=== PATIENT | female | born 1975 | race Caucasian/White ===

== ENCOUNTER 2018-05-03 16:20 | Emergency (ER) | payer MEDICAID, SELFPAY ==
[2018-05-03 17:04] VITALS: BP 126/76; PULSE 118; RESP 20; TEMP 37.2; O2SAT 97
--- NOTE | 2018-05-03 17:52 | W.ED.GENAD ---
Discharge Plan Disposition Patient Disposition: HOME Condition: Fair Discharge Details Chief Complaint: Sorethroat Clinical Impression: Abscess, peritonsillar Primary Care Provider: NONE,NONE ED Provider: Yamini Howard Home Meds and New Rx's Prescriptions: New amoxicillin-pot clavulanate [Augmentin] 875-125 mg tablet 1 tab PO BID Qty: 18 RF: 0 Discharge Instructions Instructions: Abscess (ED) Additional Instructions: Encourage hydration. Tylenol and/or ibuprofen as needed for discomfort. Take Augmentin as prescribed. Even if symptoms improve please take the entire course. Please contact ENT tomorrow to schedule appointment within the next 1-2 days. I have asked our patient care secretary to help facilitate follow-up as well. If you develop difficulty breathing, shortness of breath, inability to swallow, inability to hydrated or other new/worsening symptoms please seek care urgently once again Referrals: Kuldip Bai MD [ [facility] STAFF PHYSICIAN] - 05/05/18 12:00 am ([phone] ) Discharge Data Discharge Date/Time-TO BE ENTERED AT DEPARTURE: 05/03/18 22:09 Medical Decision Making <MADDIE Miller - Last Filed: 05/15/18 20:40> MDM Narrative Medical decision making narrative: Patient presents today with chief complaint of left-sided throat pain. On exam, she does have a large amount of swelling and exudates and erythema to the left side of her throat. There is tonsillar enlargement as well as uvula deviation. Findings are concerning for recurrence of the peritonsillar abscess. Palpable anterior cervical lymphadenopathy. Left ear is without significant abnormality. She appears nontoxic, afebrile. She is incredibly anxious and tearing on exam. Will obtain CT, Decadron, Unasyn and anxiolytic. Patient has not been able to tolerate any p.o. hydration and she cannot swallow. We will give IV hydration. Patient reports she feels much improved after anxiolytic. CT reviewed by radiologist. 2.3 x 1.3cm peripheral enhancing collection along the left peritonisilar abscess. Second abscess is 1.2 x 1.3cm medial to the uvula. Third collection of fluid is noted along the soft palate, 1.5x 1.1cm. These are concerning for peritonisillar abscess. Also noted to have enlarged nodes. Labs significant for WBC of 14.8 with left shift. Discussed findings wth the patient. Discussed that she will need drainage of these abscess as well as prompt f/u with ENT. Discussed case with Dr. Mitchell who will preform drainage. Patient, Dr. Mitchell and I discussed risks/benefits as well as expected course. Patient has had this completed multiple times. She signed consent. Patient given another dose of anxiolytic prior to proceedure. Please see Dr. Mitchell's note for information on procedure. Pus was able to be extracted from abscess via needle aspiration. Patient will f/u with ENT tomorrow, I have asked our patient care secretary to help with this appointment. Patient placed on antibiotics. She was given strict return precautions. In particular, we discussed the need for definitive care. She has been advised in the past to have her tonsils out secondary to her repeat peritonsillar abscesses. However, she has not done this secondary to anxiety. Advised that she can discuss her anxiety with the ENT provider and make a plan on how to approach her anxiety. She was given strict return precautions. All of her questions and concerns were adddressed, she is in agreement with tis plan. <Flavio Mitchell MD - Last Filed: 05/08/18 16:41> [facility] Narrative Medical decision making narrative: I was asked to participate in care of this patient by MADDIE Howard specifically to assist in incision and drainage. Please see MADDIE Howard documentation re: ED presentation and initial course. Briefly, Ms. Grajeda is a 42yo f with sore throat, left peritonsillar abscess on CT. Hx of peritonsillar abscesses in the past. On exam, posterior oropharynx is with erythema and left peritonsillar swelling, uvula deviated slight to right of midline, small exudate. Able to open her mouth without significant trismus. Not septic appearing. Patient does have significant anxiety. Patient was provided in the lytic and topical anesthetic Hurricaine spray was applied to left peritonsillar area. I performed incision and drainage of abscess with MADDIE Howrad. Plan to start patient on antibiotic and have her follow-up with ENT. Patient was intstructed to return to the ER immediately for any new concerning or worsening symptoms. HPI - General Adult <MADDIE Miller - Last Filed: 05/15/18 20:40> General Mode of arrival: ambulatory. Date/Time Provider Initiated Documentation: 05/03/18 17:47. Limitations to Documentation: no limitations. Information obtained by: patient and family. HPI Narrative: Patient is a 40-year-old female, accompanied by her , with chief complaint of left-sided throat pain. She reports that the throat pain began yesterday. Reports that she has had multiple peritonsillar abscesses in the past, this would be her sixth. Persistent is the same as it has previously. She states that she is having difficulty swallowing, has not been able to take in enough hydrations for the day. She denies any fevers or chills. No nausea or vomiting. Is also endorsing pain that radiates up to the left ear and down the lateral aspect of the left neck. Patient reports she has been seen previously by ENT as well as her dentist. She reports that she has had multiple recommendations, including having a tonsillectomy but has refused to discuss for secondary to anxiety. Patient is currently incredibly anxious and is requesting anxiolytic Related Data Home Medications Medication Instructions Recorded Confirmed amoxicillin-pot clavulanate 1 tab PO BID #18 tab 05/03/18 [Augmentin] Previous Rx's Medication Instructions Recorded amoxicillin-pot clavulanate 1 tab PO BID #18 tab 05/03/18 [Augmentin] Allergies Allergy/AdvReac Type Severity Reaction Status Date / Time No Known Allergies Allergy Unverified 05/03/18 17:08 General Stated Complaint: Sorethroat BROOKE: 3 Review of Systems <MADDIE Miller - Last Filed: 05/15/18 20:40> Constitutional Reports as per HPI, Denies chills, Reports fatigue, Denies fever(s) and Denies headache(s) Eyes Patient Denies blurry vision and Denies change in vision ENT Reports as per HPI and Denies headache(s) Cardiovascular Denies chest pain and Denies dyspnea Respiratory Denies cough, Denies dyspnea, Denies stridor and Denies wheezing Gastrointestinal Reports as per HPI, Denies nausea and Denies vomiting Integumentary/Breasts Denies rash Neurologic Denies headache(s) Endocrine Reports fatigue Allergic/Immunologic Denies wheezing Exam <MADDIE Miller - Last Filed: 05/15/18 20:40> Const General: healthy appearing, well developed, acute distress (Patient appears very anxious and uncomfortable. She is spitting frequently, having difficulty handling secretions), not ill appearing and No well hydrated Nutritional Appearance: thin Orientation: alert and awake [facility] Head: normal to inspection, normocephalic and atraumatic Ears: hearing grossly normal bilaterally, external ears normal and TM's normal bilaterally General nose exam: external nose normal and nares normal Face and sinus: sinuses tender (tenderness over the left maxillary sinus) Mouth: tongue normal, oropharynx abnormals (swelling of left tonsil with uvula deviation away from this. White exudate noted. Trismus noted. ), mucous membranes dry and muffled voice Teeth and gingiva: dentition normal Throat: tonisls abnormal, uvula not midline, abnormal tonsil, peritonsillar mass, posterior oropharynx abnormal, uvula laterally displaced and no uvular edema Eyes General: appearance normal, both eyes and all related structures Neck Neck: lymphadenopathy (left cervical) Resp Effort & Inspection: normal respiratory effort, able to speak in complete sentences, no respiratory distress and no tracheal deviation Auscultation: clear to auscultation bilaterally Cardio Rate: regular rate Rhythm: regular rhythm Heart Sounds: S1 normal and S2 normal Skin General skin exam: no rashes or lesions noted Neuro General: alert and awake Cognition: normal cognition Speech: speech normal Gait: normal gait Motor: muscle tone normal throughout Psych Appearance: grossly normal and well kempt Mental Status: mental status grossly normal Speech and Movement: speech and movement normal Mood: congruent mood Affect: normal affect Attitude: cooperative Thought Process: normal Thought Content: normal Course <MADDIE Miller - Last Filed: 05/15/18 20:40> Vital Signs Temperature 37.2 C 05/03/18 17:04 Pulse 118 H 05/03/18 17:04 Respiratory Rate 20 05/03/18 17:04 Blood Pressure 126/76 05/03/18 17:04 Pulse Oximetry 97 05/03/18 17:04 Temperature 37.2 C 05/03/18 17:04 Pulse 118 H 05/03/18 17:04 Respiratory Rate 20 05/03/18 17:04 Blood Pressure 126/76 05/03/18 17:04 Pulse Oximetry 97 05/03/18 17:04 <Flavio Mitchell MD - Last Filed: 05/08/18 16:41> Abscess I/D Site: Other (peritonsilar) Side (if applicable): Left Sedation/analgesia: Other (ativan) Local Anesthetic: Other Anesthetic (hurricane spray) Technique: Needle Aspiration Amount of fluid expressed (mL): 1 Complications: Other (Patient with significant anxiety during procedure)
--- NOTE | 2018-05-03 17:55 | ED.GENADUL_ITS ---
Discharge Plan Disposition Patient Disposition: HOME Condition: Fair Discharge Details Chief Complaint: Sorethroat Clinical Impression: Abscess, peritonsillar Primary Care Provider: NONE,NONE ED Provider: Yamini Howard Home Meds and New Rx's Prescriptions: New amoxicillin-pot clavulanate [Augmentin] 875-125 mg tablet 1 tab PO BID Qty: 18 RF: 0 Discharge Instructions Instructions: Abscess (ED) Additional Instructions: Encourage hydration. Tylenol and/or ibuprofen as needed for discomfort. Take Augmentin as prescribed. Even if symptoms improve please take the entire course. Please contact ENT tomorrow to schedule appointment within the next 1- 2 days. I have asked our customer care team coach to help facilitate follow-up as well. If you develop difficulty breathing, shortness of breath, inability to swallow, inability to hydrated or other new/worsening symptoms please seek care urgently once again Referrals: Kuldip Bai MD [ [facility] STAFF PHYSICIAN] - 05/05/18 12:00 am ([phone] ) Discharge Data Discharge Date/Time-TO BE ENTERED AT DEPARTURE: 05/03/18 22:09 Medical Decision Making <MADDIE Miller - Last Filed: 05/15/18 20:40> MDM Narrative Medical decision making narrative: Patient presents today with chief complaint of left-sided throat pain. On exam, she does have a large amount of swelling and exudates and erythema to the left side of her throat. There is tonsillar enlargement as well as uvula deviation. Findings are concerning for recurrence of the peritonsillar abscess. Palpable anterior cervical lymphadenopathy. Left ear is without significant abnormality. She appears nontoxic, afebrile. She is incredibly anxious and tearing on exam. Will obtain CT, Decadron, Unasyn and anxiolytic. Patient has not been able to tolerate any p.o. hydration and she cannot swallow. We will give IV hydration. Patient reports she feels much improved after anxiolytic. CT reviewed by radiologist. 2.3 x 1.3cm peripheral enhancing collection along the left peritonisilar abscess. Second abscess is 1.2 x 1.3cm medial to the uvula. Third collection of fluid is noted along the soft palate, 1.5x 1.1cm. These are concerning for peritonisillar abscess. Also noted to have enlarged nodes. Labs significant for WBC of 14.8 with left shift. Discussed findings wth the patient. Discussed that she will need drainage of these abscess as well as prompt f/u with ENT. Discussed case with Dr. Mitchell who will preform drainage. Patient, Dr. Mitchell and I discussed risks/benefits as well as expected course. Patient has had this completed multiple times. She signed consent. Patient given another dose of anxiolytic prior to proceedure. Please see Dr. Mitchell's note for information on procedure. Pus was able to be extracted from abscess via needle aspiration. Patient will f/u with ENT tomorrow, I have asked our customer care team coach to help with this appointment. Patient placed on antibiotics. She was given strict return precautions. In particular, we discussed the need for definitive care. She has been advised in the past to have her tonsils out secondary to her repeat peritonsillar abscesses. However, she has not done this secondary to anxiety. Advised that she can discuss her anxiety with the ENT provider and make a plan on how to approach her anxiety. She was given strict return precautions. All of her questions and concerns were adddressed, she is in agreement with tis plan. <Flavio Mitchell MD - Last Filed: 05/08/18 16:41> [facility] Narrative Medical decision making narrative: I was asked to participate in care of this patient by MADDIE Howard specifically to assist in incision and drainage. Please see MADDIE Howard documentation re: ED presentation and initial course. Briefly, Ms. Grajeda is a 42yo f with sore throat, left peritonsillar abscess on CT. Hx of peritonsillar abscesses in the past. On exam, posterior oropharynx is with erythema and left peritonsillar swelling, uvula deviated slight to right of midline, small exudate. Able to open her mouth without significant trismus. Not septic appearing. Patient does have significant anxiety. Patient was provided in the lytic and topical anesthetic Hurricaine spray was applied to left peritonsillar area. I performed incision and drainage of abscess with MADDIE Howard. Plan to start patient on antibiotic and have her follow-up with ENT. Patient was intstructed to return to the ER immediately for any new concerning or worsening symptoms. HPI - General Adult <MADDIE Miller - Last Filed: 05/15/18 20:40> General Mode of arrival: ambulatory . Date/Time Provider Initiated Documentation: 05/03/18 17:47 . Limitations to Documentation: no limitations . Information obtained by: patient and family . HPI Narrative: Patient is a 40-year-old female, accompanied by her , with chief complaint of left-sided throat pain. She reports that the throat pain began yesterday. Reports that she has had multiple peritonsillar abscesses in the past, this would be her sixth. Persistent is the same as it has previously. She states that she is having difficulty swallowing, has not been able to take in enough hydrations for the day. She denies any fevers or chills. No nausea or vomiting. Is also endorsing pain that radiates up to the left ear and down the lateral aspect of the left neck. Patient reports she has been seen previously by ENT as well as her dentist. She reports that she has had multiple recommendations, including having a tonsillectomy but has refused to discuss for secondary to anxiety. Patient is currently incredibly anxious and is requesting anxiolytic Related Data Home Medications Medication Instructions Recorded Confirmed amoxicillin-pot clavulanate 1 tab PO BID #18 tab 05/03/18 [Augmentin] Previous Rx's Medication Instructions Recorded amoxicillin-pot clavulanate 1 tab PO BID #18 tab 05/03/18 [Augmentin] Allergies Allergy/AdvReac Type Severity Reaction Status Date / Time No Known Allergies Allergy Unverified 05/03/18 17:08 General Stated Complaint: Sorethroat BROOKE: 3 Review of Systems <MADDIE Miller - Last Filed: 05/15/18 20:40> Constitutional Reports as per HPI, Denies chills, Reports fatigue, Denies fever(s) and Denies headache(s) Eyes Patient Denies blurry vision and Denies change in vision ENT Reports as per HPI and Denies headache(s) Cardiovascular Denies chest pain and Denies dyspnea Respiratory Denies cough, Denies dyspnea, Denies stridor and Denies wheezing Gastrointestinal Reports as per HPI, Denies nausea and Denies vomiting Integumentary/Breasts Denies rash Neurologic Denies headache(s) Endocrine Reports fatigue Allergic/Immunologic Denies wheezing Exam <MADDIE Miller - Last Filed: 05/15/18 20:40> Const General: healthy appearing, well developed, acute distress (Patient appears very anxious and uncomfortable. She is spitting frequently, having difficulty handling secretions), not ill appearing and No well hydrated Nutritional Appearance: thin Orientation: alert and awake [facility] Head: normal to inspection, normocephalic and atraumatic Ears: hearing grossly normal bilaterally, external ears normal and TM's normal bilaterally General nose exam: external nose normal and nares normal Face and sinus: sinuses tender (tenderness over the left maxillary sinus) Mouth: tongue normal, oropharynx abnormals (swelling of left tonsil with uvula deviation away from this. White exudate noted. Trismus noted. ), mucous membranes dry and muffled voice Teeth and gingiva: dentition normal Throat: tonisls abnormal, uvula not midline, abnormal tonsil, peritonsillar mass , posterior oropharynx abnormal, uvula laterally displaced and no uvular edema Eyes General: appearance normal, both eyes and all related structures Neck Neck: lymphadenopathy (left cervical) Resp Effort & Inspection: normal respiratory effort, able to speak in complete sentences, no respiratory distress and no tracheal deviation Auscultation: clear to auscultation bilaterally Cardio Rate: regular rate Rhythm: regular rhythm Heart Sounds: S1 normal and S2 normal Skin General skin exam: no rashes or lesions noted Neuro General: alert and awake Cognition: normal cognition Speech: speech normal Gait: normal gait Motor: muscle tone normal throughout Psych Appearance: grossly normal and well kempt Mental Status: mental status grossly normal Speech and Movement: speech and movement normal Mood: congruent mood Affect: normal affect Attitude: cooperative Thought Process: normal Thought Content: normal Course <MADDIE Miller - Last Filed: 05/15/18 20:40> Vital Signs Temperature 37.2 C 05/03/18 17:04 Pulse 118 H 05/03/18 17:04 Respiratory Rate 20 05/03/18 17:04 Blood Pressure 126/76 05/03/18 17:04 Pulse Oximetry 97 05/03/18 17:04 Temperature 37.2 C 05/03/18 17:04 Pulse 118 H 05/03/18 17:04 Respiratory Rate 20 05/03/18 17:04 Blood Pressure 126/76 05/03/18 17:04 Pulse Oximetry 97 05/03/18 17:04 <Flavio Mitchell MD - Last Filed: 05/08/18 16:41> Abscess I/D Site: Other (peritonsilar) Side (if applicable): Left Sedation/analgesia: Other (ativan) Local Anesthetic: Other Anesthetic (hurricane spray) Technique: Needle Aspiration Amount of fluid expressed (mL): 1 Complications: Other (Patient with significant anxiety during procedure)
[2018-05-03] MEDS: Normal Saline 1,000 ML 1000 ML IV (18:43)
[2018-05-03] MEDS: LORazepam 2 MG/ML VIAL 0.5 MG IVP (18:44)
[2018-05-03] MEDS: AMPICILLIN/SULBACTAM 3 GM in Normal Saline 100 ML IVPB (18:47)
[2018-05-03 19:04] LABS: Abs Immature Grans 0.03 k/cumm (0.0-0.09); Absolute Basophil Count 0.03 k/cumm (0.0-0.2); Absolute Lymphocyte Count 1.59 k/cumm (1.2-3.4); Absolute Monocyte Count 1.05 k/cumm (0.11-0.7); Basophils % 0.2; Eosinophils % 0.3; HGB 13.3 g/dL (12.0-15.5); Immature Grans % 0.2; Lymphocytes % 10.7; Mean Corp. HGB Concentration 31.7 g/dL (32.0-36.0); Mean Corpuscular Hemoglobin 28.7 pg (27.0-33.0); Mean Corpuscular Volume 90.7 fL (80-95); Mean Platelet Volume 9.7 fL (8.0-11.0); Monocytes % 7.1; Neutrophils % 81.5; Platelet Count 305 x1000/uL (130-400); RBC 4.63 m/cumm (4.00-5.20); RBC Distribution Width 12.9 % (11.7-14.6); White Blood Cell Count 14.83 k/cumm (4.4-10.8)
[2018-05-03 19:09] LABS: Absolute Eosinophil Count 0.04 k/cumm (0.0-0.7); Absolute Neutrophil Count 12.09 k/cumm (1.2-6.7)
--- NOTE | 2018-05-03 19:18 | DI.CT_ITS ---
SYMPTOMS/DIAGNOSIS: LT SIDED SWELLING, ? PERITONSILLAR ABSCESS CT SCAN OF THE NECK: CT scan of the neck was performed following the uneventful administration of intravenous contrast material. There is a 2.3 x 1.3 cm low attenuation peripherally enhancing collection in the left peritonsillar region. There is a second low attenuation lesion with similar characteristics medially adjacent to the uvula measuring 1.2 x 1.3 cm. Superior to these lesions there is a similar lesion measuring 1.5 x 1.1 cm at the level of the soft palate. These are felt to be consistent with peritonsillar abscesses. There is bulging into the airway with deviation of the uvula to the right. Mildly enlarged lymph nodes are seen in the left neck which are likely reactive. The largest measures 1.4 cm. The parotid and submandibular glands are unremarkable. The remaining visualized portions of the nasopharynx, oropharynx, hypopharynx and larynx are unremarkable. The trachea is unremarkable as is the thyroid gland. The bones are intact. The visualized paranasal sinuses are clear. The mastoid air cells are well pneumatized. The vascular structures are unremarkable. The lung apices appear clear. Mild paraseptal blebs are identified. IMPRESSION: At least three fluid collections seen in the left peritonsillar region consistent with peritonsillar abscesses. ENT consultation is recommended in this patient.
[2018-05-03] MEDS: Omnipaque 350 MG/ML 100 ML BTL IJ (19:19)
[2018-05-03 19:23] LABS: ALT 40 U/L (12-78); AST 22 U/L (15-37); Albumin 3.8 g/dL (3.4-5.0); Alkaline Phosphatase 125 U/L (46-116); Anion Gap 12.9 mmol/L (3-11); BUN 13 mg/dL (7-18); Bilirubin, Total 0.5 mg/dL (0.2-1.0); CO2 25.1 mmol/L (21.0-32.0); CREATININE 0.85 mg/dL (0.55-1.02); Calcium 9.2 mg/dL (8.5-10.1); Chloride 99 mmol/L (98-107); Glucose 96 mg/dL (70-100); Sodium 137 mmol/L (136-145); Total Protein 9.1 g/dL (6.4-8.2)
[2018-05-03] MEDS: Dexamethasone 10 MG/ML VIAL IVP (19:51)
--- NOTE | 2018-05-03 20:02 | DI.VRAD_ITS ---
EXAM: CT Neck With Intravenous Contrast EXAM DATE/TIME: 05/03/2018 6:55 PM CLINICAL HISTORY: 42 years old, female; Signs and symptoms; Abscess, tonsil and mass, lump, or swelling in neck; Patient HX: Left sided swelling, peritonsillar abscess? TECHNIQUE: Axial computed tomography images of the neck with intravenous contrast. All CT scans at this facility use at least one of these dose optimization techniques: automated exposure control; mA and/or kV adjustment per patient size (includes targeted exams where dose is matched to clinical indication); or iterative reconstruction. Coronal and sagittal reformatted images were created and reviewed. CONTRAST: 100 ml of omni administered intravenously. COMPARISON: No relevant prior studies available. FINDINGS: Nasopharynx: Normal. Oropharynx: There is identified an approximately 2.3 x 1.3 but on 0.1 cm zone of low density in the left peritonsillar region. An adjacent medial 1.1 x 0.7 x 0.8 cm low density zone is also present in the left peritonsillar region. These are thought consistent with peritonsillar abscesses. ENT surgical consultation is advised. Hypopharynx: Normal. Larynx: Normal. Normal epiglottis. Trachea: Normal. Retropharyngeal space: Normal. Submandibular/Parotid glands: Normal. Glands are normal in size. Thyroid: Normal. No enlarged or calcified nodules. Bones/joints: Normal. No acute fracture. Soft tissues: Normal. No significant soft tissue swelling. Vasculature: No acute findings. Lymph nodes: Numerous left posterior chain neck lymph nodes are present; a few of which are borderline enlarged, which are thought likely consistent with reactive lymph nodes. Lung apices: Normal as visualized. IMPRESSION: At least 2 left peritonsillar abscess collections are detected as described above. ENT she is surgical consultation is recommended. Dictated and Authenticated by: Jose Mclaughlin MD. Ordering:YASHIRA GROVER MD
[2018-05-03] MEDS: LORazepam 2 MG/ML VIAL 1 MG IVP (20:47)
[2018-05-03 22:05] VITALS: BP 103/79; PULSE 116; RESP 18; O2SAT 95
[2018-05-03] MEDS: Amoxicillin 875/Clav. 125 TAB PO (22:05)
--- NOTE | 2018-05-04 09:33 | PDOC.ERCMPRO ---
Care Management Progress Note 05/04/18-Pt seen for peritonsillar abscess on by Guillermina Howard. Referral faxed to ENT for f/u within 48 hrs and to [facility] as Yoseph Mcleod is credit verification clerk.
--- NOTE | 2018-05-04 09:36 | CMPROGNOTE_ITS ---
Care Management Progress Note 05/04/18-Pt seen for peritonsillar abscess on by Guillermina Howard. Referral faxed to ENT for f/u within 48 hrs and to [facility] as Yoseph Mcleod is oncology rn.
== END 2018-05-03 22:09 | disposition home or self-care (01) ==
PROVIDERS: Emergency Provider Physician Assistant
DX: J36 Peritonsillar abscess (principal); F41.9 Anxiety disorder, unspecified
CPT/HCPCS: 10160; 36415; 70491; 80053; 96374; 96375; 96376; 99285; 85025; 99284; J0295; J1100; J2060; J3490